=== PATIENT | male | born 1940 | race Caucasian/White ===

== ENCOUNTER 2018-05-16 12:45 | Outpatient (CLI) | payer MEDICARE, OTHER ==
[2018-05-16 13:11] LABS: TOTAL HEMOGLOBIN 14.3 G/dl (14.0-18.0)
== END 2018-05-16 23:59 | disposition home or self-care (01) ==
LOC: RT 12:45
PROVIDERS: ATTEND Internal Medicine Pulmonary Disease
DX: J45.991 Cough variant asthma (principal); R06.09 Other forms of dyspnea; F17.210 Nicotine dependence, cigarettes, uncomplicated; Z79.899 Other long term (current) drug therapy
CPT/HCPCS: 85018; 94010; 94727; 94729

== ENCOUNTER 2018-08-30 09:46 | Inpatient (IN) | payer MEDICARE, OTHER ==
[2018-08-24 15:48] LABS: BASOPHILS % (AUTO) 0.3 % (0-1); EOSINOPHILS # (AUTO) 0.3 X10'3 (0-0.9); EOSINOPHILS % (AUTO) 4.4 % (0-6); LYMPHOCYTES # (AUTO) 1.5 X10'3 (1.1-4.8); LYMPHOCYTES % (AUTO) 22.4 % (21-51); MEAN CORPUSCULAR HEMOGLOBIN 27.8 PG (27.0-31.0); MEAN CORPUSCULAR HGB CONC 32.6 % (33.0-36.5); MEAN CORPUSCULAR VOLUME 85.3 FL (78-98); MEAN PLATELET VOLUME 7.4 FL (7.4-10.4); MONOCYTES # (AUTO) 0.8 X10'3 (0-0.9); MONOCYTES % (AUTO) 11.5 % (2-12); NEUTROPHILS % (AUTO) 61.4 % (42-75); PRE OP HEMATOCRIT 39.8 % (42.0-52.0); PRE OP HEMOGLOBIN 12.9 g/dL (14.0-17.9); PRE OP PLATELET COUNT 303 X10'3 (140-440); RED BLOOD COUNT 4.66 X10'6 (4.70-6.10); RED CELL DISTRIBUTION WIDTH 13.3 % (11.5-14.5)
[2018-08-24 15:50] LABS: CLARITY,URINE CLEAR (Clear); COLOR,URINE YELLOW (Yellow); GLUCOSE, URINE NEGATIVE (Neg); KETONES,URINE NEGATIVE (Neg); LEUKOCYTE ESTERASE ,URINE NEGATIVE (Neg); NITRITES, URINE NEGATIVE (Neg); OCCULT BLOOD,URINE NEGATIVE (Neg); PROTEIN,URINE NEGATIVE (Neg); UA COLLECTION TYPE NON-SPECIFIED; UROBILINOGEN,URINE 0.2 E.U/dL (0.2-1.0)
[2018-08-24 16:05] LABS: ALBUMIN 3.7 G/DL (3.4-5.0); ALBUMIN/GLOBULIN RATIO 1.1 (1.1-1.5); ALKALINE PHOSPHATASE 107 IU/L (46-116); BLOOD UREA NITROGEN 19 MG/DL (7-18); CALCIUM 9.4 MG/DL (8.5-10.1); CHLORIDE 102 MMOL/L (99-107); PRE OP ALT 24 U/L (30-65); PRE OP ANION GAP 10 (8-16); PRE OP AST 20 U/L (10-37); PRE OP BILIRUB, TOTAL 0.3 MG/DL (0.0-1.0); PRE OP GLUCOSE 98 MG/DL (70-104); PRE OP POTASSIUM 3.6 MMOL/L (3.4-5.1); PRE OP SODIUM 141 MMOL/L (135-145); TOTAL PROTEIN 7.2 G/DL (6.4-8.2); eGFR 72 ML/MIN
[2018-08-30] VITALS (16 sets, daily range): BP systolic 93–137; BP diastolic 44–72
[~2018-08-30] VITALS: Ht 172.7 cm; Wt 99.8 kg
[~2018-08-30 09:46] MED LIST: FINA5TAB11 PO; GLUC-221 PO; HYDR25TA4 PO; IRBE150T51 PO; MULT-933 PO; OMEP20TA5 PO; PRAV20TA4 PO; SAW450CA7 PO; acetaminophen 325mg tablet PO ONE; ceFAZolin inj. 2,000 MG in dextrose 5%-water 50ml 50 ML IV ONE; celeCOXIB 100mg capsule PO ONE; famotidine 20mg tablet PO ONE; gabapentin 300mg capsule PO ONE; metoclopramide 5 mg/ml inj IV ONE; normal saline 1000ml 1,000 ML IV SCH; oxyCODONE SR 10mg (sust. release) tab PO ONE; ringers solution, lacted 1,000 ML IV SCH; tranexamic acid inj. 1,000 MG in normal saline 100ml IV soln 90 ML IV ONE; vancomycin inj 1,500 MG in normal saline 300ml IV soln IV ONE
[2018-08-30] MEDS ORDERED: ringers solution, lacted 1,000 ML IV SCH (10:08)
[2018-08-30] MEDS ORDERED: proCHLORperazine 10 MG/2 ml inj IV PRN (10:10)
[2018-08-30] MEDS ORDERED: meperidine/PF 25mg/ml syringe IV PRN ×3 (10:10)
[2018-08-30] MEDS ORDERED: morphine 4 MG/ML inj SYRINge IV PRN ×2 (10:10)
[2018-08-30] MEDS ORDERED: ondansetron/PF 4mg/2ml inj IV PRN ×2 (10:10→11:25)
[2018-08-30] MEDS ORDERED: diphenhydrAMINE 25mg capsule PO PRN ×2 (11:25)
[2018-08-30] MEDS ORDERED: acetaminophen 325mg tablet PO PRN (11:25)
[2018-08-30] MEDS ORDERED: bisacodyl 10mg suppository rectal RC PRN (11:25)
[2018-08-30] MEDS ORDERED: magnesium hydroxide 30ml (MOM) UD suspension PO PRN (11:25)
[2018-08-30] MEDS ORDERED: HYDROmorphone 1 mg/ml syringe IV PRN ×2 (11:25)
[2018-08-30] MEDS ORDERED: vancomycin 1,000mg inj ONE (11:39)
[2018-08-30] MEDS ORDERED: ROPIVAcaine 0.5% (5mg/ml) 30ml vial ONE ×2 (11:39→13:22)
[2018-08-30] MEDS ORDERED: ketorolac trometh. 30mg/ml inj. ONE (11:39)
[2018-08-30] MEDS ORDERED: epiNEPHrine 1 mg/ml inj ONE (11:39)
[2018-08-30] MEDS: gabapentin 300mg capsule PO SCH ×2 (13:00→20:08)
[2018-08-30] MEDS ORDERED: MIDAZolam 5mg/5ml vial ONE (13:03)
[2018-08-30] MEDS ORDERED: fentaNYL/PF 50MCG/1 ML 2ML syringe ONE (13:03)
[2018-08-30] MEDS ORDERED: BUPIVAcaine/dex-water/PF 7.5 mg/ml 2ml ampul ONE (13:05)
[2018-08-30] MEDS: potassium cl 20mEq in 1/2 NS 1,000 ML IV SCH ×2 (16:48→19:25)
[2018-08-30] MEDS: cefazolin/dext.iso 2gm/50ml 50 ML IV SCH ×2 (16:51→23:35)
[2018-08-30] MEDS: oxyCODONE/APAP 5-325mg tablet PO PRN (17:29)
[2018-08-30] MEDS ORDERED: cefazolin/dext.iso 2gm/100ml 100 ML IV SCH (18:00)
[2018-08-30] MEDS: ascorbic acid 500mg tablet PO SCH (19:19)
[2018-08-30] MEDS ORDERED: tranexamic acid inj. 1,000 MG in normal saline 100ml IV soln 100 ML IV ONE (20:00)
[2018-08-30] MEDS: pantoprazole 40mg Tablet.DR PO SCH (20:08)
[2018-08-30] MEDS: sennosides 8.6mg tablet PO SCH (20:08)
[2018-08-31] MEDS: potassium cl 20mEq in 1/2 NS 1,000 ML IV SCH ×3 (01:50→19:20)
[2018-08-31 02:00] VITALS: BP 99/52
[2018-08-31] MEDS: oxyCODONE/APAP 5-325mg tablet PO PRN ×2 (05:29→10:44)
[2018-08-31 06:00] VITALS: BP 109/54
[2018-08-31 06:58] LABS: BASOPHILS % (AUTO) 0 % (0-1); EOSINOPHILS # (AUTO) 0.1 X10'3 (0-0.9); EOSINOPHILS % (AUTO) 0.8 % (0-6); HEMOGLOBIN 11.7 g/dl (14.0-17.9); LYMPHOCYTES # (AUTO) 0.7 X10'3 (1.1-4.8); LYMPHOCYTES % (AUTO) 5.3 % (21-51); MEAN CORPUSCULAR HEMOGLOBIN 28.1 PG (27.0-31.0); MEAN CORPUSCULAR HGB CONC 33.4 % (33.0-36.5); MEAN CORPUSCULAR VOLUME 84.1 FL (78-98); MEAN PLATELET VOLUME 7.7 FL (7.4-10.4); MONOCYTES # (AUTO) 0.9 X10'3 (0-0.9); MONOCYTES % (AUTO) 6.6 % (2-12); NEUTROPHILS % (AUTO) 87.3 % (42-75); PLATELET COUNT 270 X10'3 (140-440); RED BLOOD COUNT 4.16 X10'6 (4.70-6.10); RED CELL DISTRIBUTION WIDTH 13.6 % (11.5-14.5); WHITE BLOOD COUNT 13.7 X10'3 (4.5-11.0)
[2018-08-31 07:08] LABS: ANION GAP 9 (8-16); CHLORIDE 101 MMOL/L (99-107); POTASSIUM 4.2 MMOL/L (3.5-5.1); SODIUM 136 MMOL/L (135-145); TOTAL CARBON DIOXIDE 26.3 MMOL/L (24-32)
[2018-08-31] MEDS: multivitamins, therapeutics tablet PO SCH (07:33)
[2018-08-31] MEDS: aspirin 325mg tablet PO SCH (07:33)
[2018-08-31] MEDS: ascorbic acid 500mg tablet PO SCH ×2 (07:34→19:19)
[2018-08-31] MEDS: atorvastatin 10mg tablet PO SCH (07:34)
[2018-08-31] MEDS: gabapentin 300mg capsule PO SCH ×3 (07:34→20:37)
[2018-08-31] MEDS: finasteride 5mg tablet PO SCH (07:35)
[2018-08-31] MEDS: HYDROchlorothiazide 25mg tablet PO SCH (07:41)
[2018-08-31] MEDS: losartan 50mg tablet PO SCH (07:41)
[2018-08-31 10:00] VITALS: BP 111/55
[2018-08-31] MEDS: oxyCODONE/APAP 10/325mg tablet PO PRN (16:16)
[2018-08-31 17:00] VITALS: BP 113/51
[2018-08-31] MEDS: celeCOXIB 100mg capsule PO SCH (19:19)
[2018-08-31] MEDS: pantoprazole 40mg Tablet.DR PO SCH (20:37)
[2018-08-31] MEDS: sennosides 8.6mg tablet PO SCH (20:37)
[2018-08-31 22:00] VITALS: BP 110/49
[2018-09-01 06:00] VITALS: BP 117/61
[2018-09-01 07:04] LABS: BASOPHILS % (AUTO) 0.5 % (0-1); EOSINOPHILS # (AUTO) 0.5 X10'3 (0-0.9); EOSINOPHILS % (AUTO) 5.3 % (0-6); HEMOGLOBIN 12.3 g/dl (14.0-17.9); LYMPHOCYTES # (AUTO) 1.4 X10'3 (1.1-4.8); LYMPHOCYTES % (AUTO) 15.2 % (21-51); MEAN CORPUSCULAR HEMOGLOBIN 28.4 PG (27.0-31.0); MEAN CORPUSCULAR HGB CONC 33.2 % (33.0-36.5); MEAN CORPUSCULAR VOLUME 85.4 FL (78-98); MEAN PLATELET VOLUME 8.1 FL (7.4-10.4); MONOCYTES % (AUTO) 11.4 % (2-12); NEUTROPHILS # (AUTO) 6.1 X10'3 (1.8-7.7); NEUTROPHILS % (AUTO) 67.6 % (42-75); PLATELET COUNT 261 X10'3 (140-440); RED BLOOD COUNT 4.34 X10'6 (4.70-6.10); RED CELL DISTRIBUTION WIDTH 13.9 % (11.5-14.5)
[2018-09-01] MEDS: ascorbic acid 500mg tablet PO SCH (08:31)
[2018-09-01] MEDS: celeCOXIB 100mg capsule PO SCH (08:31)
[2018-09-01] MEDS: aspirin 325mg tablet PO SCH (08:31)
[2018-09-01] MEDS: finasteride 5mg tablet PO SCH (08:31)
[2018-09-01] MEDS: HYDROchlorothiazide 25mg tablet PO SCH (08:31)
[2018-09-01] MEDS: atorvastatin 10mg tablet PO SCH (08:31)
[2018-09-01] MEDS: gabapentin 300mg capsule PO SCH (08:31)
[2018-09-01] MEDS: oxyCODONE/APAP 10/325mg tablet PO PRN (08:31)
[2018-09-01] MEDS: multivitamins, therapeutics tablet PO SCH (08:31)
[2018-09-01] MEDS: losartan 50mg tablet PO SCH (08:31)
[2018-09-01 10:00] VITALS: BP 116/52
== END 2018-09-01 12:40 | disposition home or self-care (01) | DRG 470 ==
LOC: PAS IN 09:46 → EDSTATUS 12:45 → ORTHO 4S 16:51
PROVIDERS: ADMIT Orthopaedic Surgery; ATTEND Orthopaedic Surgery
PROC: 3E0T3BZ Introduction of Anesthetic Agent into Peripheral Nerves and Plexi, Percutaneous Approach (ICD-10-PCS; 2018-08-30)
PROC: 8E0Y0CZ Robotic Assisted Procedure of Lower Extremity, Open Approach (ICD-10-PCS; 2018-08-30)
PROC: 0SRC0J9 Replacement of Right Knee Joint with Synthetic Substitute, Cemented, Open Approach (ICD-10-PCS; principal; 2018-08-30 12:57)
DX: M17.11 Unilateral primary osteoarthritis, right knee (principal); D62 Acute posthemorrhagic anemia; E78.5 Hyperlipidemia, unspecified; I10 Essential (primary) hypertension; K21.9 Gastro-esophageal reflux disease without esophagitis; N40.0 Benign prostatic hyperplasia without lower urinary tract symptoms; E66.9 Obesity, unspecified; Z90.49 Acquired absence of other specified parts of digestive tract; Z79.899 Other long term (current) drug therapy; Z87.891 Personal history of nicotine dependence; Z83.3 Family history of diabetes mellitus; Z80.9 Family history of malignant neoplasm, unspecified; Z68.33 Body mass index [BMI] 33.0-33.9, adult
CPT/HCPCS: 36415; 71046; 73560; 80051; 80053; 81003; 85025; 86885; 86900; 86901; 87070; 93005; 97110; 97116; 97161; A6449; A6455; A7000; C1713; C1758; C1776; G0378; J0171; J0690; J1885; J2250; J2765; J2795; J3010; J3370; J3490; J7030; J7060; J7120